=== PATIENT | male | born 1980 ===

== ENCOUNTER 2020-08-21 10:29 | Emergency (ER) | payer MEDICAID ==
[~2020-08-21] VITALS: Ht 172.7 cm; Wt 75.0 kg
[2020-08-21 11:20] VITALS: BP 146/105
[2020-08-21] MEDS ORDERED: NO HOME MEDS (12:44)
[2020-08-21 13:43] LABS: ALANINE AMINOTRANSFERASE 37 U/L (12-78); ALBUMIN 4.7 G/DL (3.4-5.0); ALBUMIN/GLOBULIN RATIO 1.3 (1.1-1.5); ALKALINE PHOSPHATASE 73 IU/L (46-116); ANION GAP 12 (8-16); ASPARTATE AMINO TRANSFERASE 29 U/L (10-37); BILIRUBIN,TOTAL 1.3 MG/DL (0.1-1.0); BLOOD UREA NITROGEN 7 MG/DL (7-18); BUN/CREATININE RATIO 8.9 (5.4-32.0); CALCIUM 8.3 MG/DL (8.5-10.1); CHLORIDE 106 MMOL/L (99-107); CREATININE 0.79 MG/DL (0.60-1.10); GLUCOSE 110 MG/DL (70-104); POTASSIUM 3.6 MMOL/L (3.5-5.1); SODIUM 147 MMOL/L (135-145); TOTAL CARBON DIOXIDE 29.5 MMOL/L (24-32); TOTAL PROTEIN 8.2 G/DL (6.4-8.2); eGFR > 90 ML/MIN
[2020-08-21 13:52] LABS: MAGNESIUM 2.3 MG/DL (1.5-2.4)
[2020-08-21 13:54] LABS: CLARITY,URINE CLEAR (Clear); COLOR,URINE STRAW (Yellow); GLUCOSE, URINE NEGATIVE (Neg); KETONES,URINE NEGATIVE (Neg); LEUKOCYTE ESTERASE ,URINE NEGATIVE (Neg); NITRITES, URINE NEGATIVE (Neg); OCCULT BLOOD,URINE TRACE-INTACT (Neg); PROTEIN,URINE NEGATIVE (Neg); UROBILINOGEN,URINE 0.2 E.U/dL (0.2-1.0)
[2020-08-21 13:57] LABS: BASOPHILS # (AUTO) 0.1 X10'3 (0-0.2); BASOPHILS % (AUTO) 1.4 % (0-1); EOSINOPHILS % (AUTO) 0.2 % (0-6); HEMATOCRIT 46.2 % (42.0-52.0); HEMOGLOBIN 15.7 g/dl (14.0-17.9); LYMPHOCYTES # (AUTO) 1.2 X10'3 (1.1-4.8); LYMPHOCYTES % (AUTO) 26.8 % (21-51); MEAN CORPUSCULAR HGB CONC 33.9 g/dL (33.0-36.5); MEAN CORPUSCULAR VOLUME 94.3 FL (78-98); MEAN PLATELET VOLUME 6.9 FL (7.4-10.4); MONOCYTES # (AUTO) 0.3 X10'3 (0-0.9); MONOCYTES % (AUTO) 7.6 % (2-12); NEUTROPHILS # (AUTO) 2.8 X10'3 (1.8-7.7); PLATELET COUNT 329 X10'3 (140-440); RED CELL DISTRIBUTION WIDTH 13.6 % (11.5-14.5); WHITE BLOOD COUNT 4.4 X10'3 (4.5-11.0)
[2020-08-21 13:58] LABS: UA COLLECTION TYPE CLN CATCH MIDSTREAM
[2020-08-21 14:01] LABS: URINE AMPHETAMINE SCREEN NEGATIVE (Neg); URINE BARBITUATE SCREEN NEGATIVE (Neg); URINE BENZODIAZEPINES SCREEN NEGATIVE (Neg); URINE CANNABINOID SCREEN NEGATIVE (Neg); URINE COCAINE SCREEN NEGATIVE (Neg); URINE METHADONE SCREEN NEGATIVE (Neg); URINE OPIATE SCREEN NEGATIVE (Neg); URINE PHENCYCLIDINE SCREEN NEGATIVE (Neg)
[2020-08-21 14:04] LABS: ETHANOL 0.335 GM/DL (0.0-0.010)
[2020-08-21 14:16] LABS: SQUAMOUS EPITHELIAL CELL,UR FEW /LPF (FEW)
[2020-08-21 14:17] LABS: BACTERIA,URINE FEW /HPF (Neg); RBC,URINE 0-2 /HPF (0-2); WBC,URINE 0-4 /HPF (0-4)
[2020-08-21 14:21] LABS: LIPASE 2591 U/L (73-393)
== END 2020-08-21 14:35 | disposition home or self-care (01) ==
LOC: ER 10:31
DX: K85.90 Acute pancreatitis without necrosis or infection, unspecified (principal); F10.20 Alcohol dependence, uncomplicated; Z72.89 Other problems related to lifestyle
CPT/HCPCS: 36415; 80053; 80305; 80320; 81001; 83690; 83735; 84443; 85025; 99283

== ENCOUNTER 2024-08-08 19:29 | Emergency (ER) | payer MEDICAID, OTHER ==
[~2024-08-08] VITALS: Ht 170.2 cm; Wt 78.2 kg
[~2024-08-08 19:29] MED LIST: NO HOME MEDS
[2024-08-08] MEDS: LIDOcaine 1% W/epiNEPHrine 1:100,000 20ml vial SQ ONE (20:30)
--- NOTE | 2024-08-08 20:47 | Physician Documentation ---
History of Present Illness ~ Chief Complaint: Laceration Stated Complaint: HAND LAC Time Seen by MD: 20:05 Primary Medical Doctor: Katerine [facility] 43-year-old male presents to the ED with a complaint of a left hand laceration of the skin. While cleaning knife this evening. States the pain in his control patient states of motion of his fingers.no numbness or tingling. Tetanus Within 5 Years: No Medication Reconciliation Allergies: Coded Allergies: No Known Allergies (Unverified , 08/21/20) Miscellaneous Medications Home Med List (No Home Medications), (Reported) Past Medical History Past Medical History: No Pertinent History Past Surgical History: noncontributory Alcohol Use: Alcoholic Drug Use: none Lives In: Home Occupation: employed Review of Systems All Other Systems at this time: Reviewed and Negative ROS As stated above in the HPI, otherwise all systems are reviewed and negative. Physical Exam Vital Signs: Temperature: 98.0, Heart Rate: 94, Respiratory Rate: 16, BP: 155/95, Pulse Oximetry: 96, Weight: 78.180 Physical Exam General: Alert, no apparent distress. Gastrointestinal: Soft, nontender, nondistended. Bowels sounds present. Extremities: Normal range of motion,10 cm laceration on the palmar aspect Neurologic: Oriented x4. Psychiatric: Normal mood and affect. Skin: Normal color, warm and dry. No edema, no ecchymosis. Procedures Laceration/Wound Repair Laceration : Anesthesia: Lidocaine w/ Epi Margins: revised Repaired: skin Wound Repaired With: sutures Suture Size/Type: 3-0 Number of Superficial Sutures: 21 Dressing Applied: simple Tolerated Procedure Well?: yes, no complications Progress Results/Orders Results/Orders Orders - ESVIN SAEZ PE MANAGER Laceration/I&D Tray Set Up (08/08/24 ) Completed Orders - ESVIN SAEZ PE MANAGER Lidocaine 1% W/Epi 1:100,000 (Xylocaine (08/08/24 20:15) Tetanus/Pertuss/Diph Acell/Pf (Boostrix (08/08/24 20:45) Medications Received in ER Medications (Trade) Dose Ordered Sig/Celio Route PRN Reason Start Time Stop Time Status Last Admin Dose Admin (Xylocaine 1%-EPI 1:100,000) 30 ml ONCE ONCE SQ 08/08/24 20:15 08/08/24 20:18 DC 08/08/24 20:30 30 ML (Boostrix vaccine syringe) 0.5 ml ONCE ONCE IMVAC 08/08/24 20:45 08/08/24 20:46 DC 08/08/24 20:54 0.5 ML Vital Signs 08/08/24 19:41 Temp 98.0 Pulse 94 Resp 16 B/P (MAP) 155/95 Pulse Ox 96 Medical Decision Making Findings Laceration was easily approximated without difficulty using 3-0 as 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 Advised him keep the area clean and dry and to have the sutures removed in 710 days Departure Disposition: HOME / SELF CARE / HOMELESS Impression: Primary Impression: Laceration Condition: Stable Discharge Instructions: Laceration Care, Adult, [id number] Additional Instructions: Have sutures removed in 7-10 days Referrals: NO PRIMARY CARE PROVIDER (PCP) ESVIN SAEZ NP August 08, 2024 20:47
[2024-08-08] MEDS: TETanus/Pertussis (Acell)/Diphther VAC/PF (Tdap-Adult) 0.5ml syringe IMVAC ONE (20:54)
[2024-08-08 21:36] VITALS: BP 150/90; PULSE 90; RESP 18; TEMP 98.6; O2SAT 99
== END 2024-08-08 21:37 | disposition home or self-care (01) ==
LOC: ER 19:29
DX: S61.412A Laceration without foreign body of left hand, initial encounter (principal); F10.90 Alcohol use, unspecified, uncomplicated; W26.0XXA Contact with knife, initial encounter; Y93.89 Activity, other specified; Y92.89 Other specified places as the place of occurrence of the external cause; Y99.8 Other external cause status; Y90.9 Presence of alcohol in blood, level not specified
CPT/HCPCS: 12004; 90471; 90715; 99283; A6222; J3490; J7040; A6449